=== PATIENT | female | born 1955 | race Caucasian/White ===

== ENCOUNTER 2017-08-27 20:39 | Emergency (ER) | payer OTHER ==
[~2017-08-27] VITALS: Ht 154.9 cm; Wt 81.7 kg
[2017-08-27] MEDS ORDERED: TRAMADOL 50 MG50 MG PO (21:37)
[2017-08-27] MEDS ORDERED: PENICILLIN VK500 M1 PO (21:37)
[2017-08-27 21:48] VITALS: BP 180/76
== END 2017-08-27 21:49 | disposition home or self-care (01) ==
LOC: ER 20:39
DX: K02.9 Dental caries, unspecified (principal); K04.7 Periapical abscess without sinus